=== PATIENT | female | born 1935 | race Caucasian/White ===

== ENCOUNTER 2019-11-19 16:14 | Emergency (ER) | payer MEDICARE, OTHER, SELFPAY ==
[2019-11-19 16:30] VITALS: BP 135/73; PULSE 90; RESP 18; TEMP 36.4; O2SAT 91; BMI 33.0
--- NOTE | 2019-11-19 17:15 | CTR_ITS ---
PROCEDURE INFORMATION: Exam: CT Head Without Contrast Exam date and time: 11/19/2019 5:33 PM Age: 84 years old Clinical indication: Injury or trauma; Fall; Initial encounter; Injury details: Patient scanned x 2 due to motion; Additional info: Fall, eliquis TECHNIQUE: Imaging protocol: Computed tomography of the head without contrast. Radiation optimization: All CT scans at this facility use at least one of these dose optimization techniques: automated exposure control; mA and/or kV adjustment per patient size (includes targeted exams where dose is matched to clinical indication); or iterative reconstruction. COMPARISON: No relevant prior studies available. RADIATION DOSE METRICS: Total DLP (mGy-cm): 1509.43 FINDINGS: Brain: Mild volume loss and white matter disease are identified. There is no acute infarct or edema. No hemorrhage. Ventricles: Normal. No ventriculomegaly. Bones/joints: There is a bilateral comminuted nasal fracture. Sinuses: Visualized sinuses are unremarkable. No fluid levels. Mastoid air cells: Visualized mastoid air cells are well aerated. Soft tissues: There is bilateral periorbital soft tissue swelling. CT/CT head wo con* [id number] IMPRESSION: There is a bilateral comminuted nasal fracture. No intracranial hemorrhage. Radiation Dose CTDIVOL = (mGy): DLP = 1509.43 (mGy-cm)
--- NOTE | 2019-11-19 17:17 | CTR_ITS ---
PROCEDURE INFORMATION: Exam: CT Maxillofacial Without Contrast Exam date and time: 11/19/2019 5:33 PM Age: 84 years old Clinical indication: Injury or trauma; Fall; Initial encounter; Blunt trauma (contusions or hematomas); Cheek bone and head/scalp and forehead and nose and orbit/periorbital and lip/oral cavity; Loss of consciousness not known; Bilateral; Both upper and lower; Additional info: Fall, eliquis TECHNIQUE: Imaging protocol: Computed tomography images of the face without contrast. Radiation optimization: All CT scans at this facility use at least one of these dose optimization techniques: automated exposure control; mA and/or kV adjustment per patient size (includes targeted exams where dose is matched to clinical indication); or iterative reconstruction. COMPARISON: No relevant prior studies available. RADIATION DOSE METRICS: Total DLP (mGy-cm): 773.99 FINDINGS: Orbits: Orbits are normal. Globes are unremarkable. Bones/joints: There is a bilateral comminuted nasal fracture. There is a minimally displaced fracture of the nasal septum. The orbital breaux, zygomatic arch and pterygoid plates are intact. Sinuses: Normal. No air-fluid levels. Soft tissues: There is bilateral periorbital soft tissue swelling. CT/CT facial bones wo con* [id number] IMPRESSION: There is a bilateral comminuted nasal fracture. There is a minimally displaced fracture of the nasal septum. Radiation Dose CTDIVOL = (mGy): DLP = 773.99 (mGy-cm)
--- NOTE | 2019-11-19 17:17 | XR_ITS ---
WS: [id number] Left wrist, 3 views, 11/19/2019 Clinical Data: fall, pain, deformity Comparison: None. Findings: There is an impacted fracture of the distal left radius. There is a simple fracture of the ulnar styl oid. The carpal bones are intact. There is soft tissue swelling about the fracture site. XR/XR wrist LT min 3V* [id number] Impression: 1. Slightly impacted fracture of the distal left radius. 2. Left ulnar styloid fracture.
[2019-11-19] MEDS: HYDROcodone-acetaminophen 5-325 mg Tablet 1 TAB PO (18:19)
[2019-11-19 19:02] VITALS: BP 142/74; PULSE 70; RESP 17; O2SAT 98
--- NOTE | 2019-11-19 20:40 | W.ED.FALL ---
HPI - Fall General: Chief Complaint: Fall Stated Complaint: fall Time Seen by Provider: 11/19/19 16:57 History of Present Illness: HPI Narrative: This patient is an 84-year-old female who presents today after falling yesterday. She thinks it was around 9:30 in the morning when she fell. She said she had climbed up 2 steps into her carport to get in her car and lost her balance. She fell off the 2 steps landing on concrete with her face. She was wearing a pair of sunglasses which she thinks caused her injuries. She also tried to catch herself on her left wrist and has severe pain there. She has significant bruising all over her face and also her hand and wrist. She denies being concerned about any sort of head or face injury and is only here because of her wrist. She is on apixaban. She has not had any vomiting or severe headache. She denies any loss of consciousness with the fall. She has a history of A. fib and is actually currently wearing a event monitor. She denies any palpitations or anything related to her fall. complaint: fall Onset (ago): day(s) (1) Fall from: standing Fall witnessed: no Place fall occurred: home Loss of consciousness: None Prolonged down time: no Symptoms prior to fall: dizziness Associated symptoms-after fall: Denies abdominal pain, chest pain, headache(s) or neck pain Review of Systems General: Reports: 10 or more systems reviewed and unremarkable except in HPI and below Const: Denies: fever(s), chills, fatigue or malaise Eyes: Denies: change in vision ENMT: Denies: odynophagia Card: Denies: chest pain or swelling of feet/ankles Resp: Denies: dyspnea, productive cough or non-productive cough GI: Denies: abdominal pain, nausea or vomiting : Denies: flank pain or difficulty voiding Musc: Reports: joint pain and joint swelling; Denies: neck pain or back pain Skin/Breast: Denies: rash Neuro: Denies: headache(s), numbness in extremities or weakness in extremities Fernando/Lymph: Denies: easy bruising or easy bleeding PFS ED PFSH: Medical History Atrial fibrillation Hypothyroidism PVC (premature ventricular contraction) Surgical History S/P abdominoplasty S/P cholecystectomy S/P hysterectomy Social History Smoking and tobacco status: never smoked Alcohol intake: current Alcohol intake frequency: holidays/special occasions only Physical Exam Const: COMMON NORMALS: no acute distress, patient oriented x3, no limitations and alert GENERAL APPEARANCE: cooperative and comfortable HENMT: FACE & SINUS: other (Ecchymosis around both eyes, the nose, with an abrasion over the bridge of the nose. Swelling of the lips with ecchymosis.) OTHER: Teeth appear stable. There is a small laceration under the left side of the nose. This is well approximated and does not need stitches. Eye: GENERAL EYE: appearance normal, both eyes and all related structures Neck/C-Spine: COMMON NORMALS: supple, no meningeal signs and no JVD Chest: COMMONS NORMALS: normal inspection of the chest Resp: COMMON NORMALS: normal respiratory effort, No use of accessory muscles and clear to auscultation bilaterally AUSCULTATION: clear to auscultation bilaterally Cardio: COMMON NORMALS: no JVD, regular rate, regular rhythm and No murmurs present (Cardio) RATE: regular rate RHYTHM: regular rhythm GI: COMMON NORMALS: Normal to inspection, nondistended, normoactive bowel sounds present, Soft to palpation and non-tender INSPECTION: Yes normal to inspection AUSCULTATION: Yes normoactive bowel sounds PALPATION: Yes Soft to palpation Back/Pelvis: COMMON NORMALS: thoracic and lumbar spine normal to inspection Extremity: GENERAL: Yes normal exam except as noted LEFT UPPER EXTREMITY: Yes wrist (Pain, swelling, deformity which is mild.) Neuro: COMMON NORMALS: patient oriented x3, moves all extremities, no focal motor deficits and no sensory deficits noted SENSORIUM/ORIENTATION: Yes alert MENINGEAL SIGNS: Yes no meningeal signs Psych: COMMON NORMALS: mental status grossly normal, cooperative and normal affect Skin: COMMON NORMALS: no rashes or lesions noted and turgor normal GENERAL SKIN EXAM: no rashes or lesions noted and turgor normal Course ED course: Patient was stable in the ED. She requested some pain medicine was given a dose of hydrocodone. 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 Splint was placed on her left wrist. CT of her head and face only showed nasal bone fractures. The x-ray of her wrist showed a distal radius fracture. She was given follow-up with Dr. Thompson and Dr. Rich. She will continue follow-up with her office coordinator for the event monitor. Vital Signs: Vital signs: Vital Signs Temperature 97.6 F 11/19/19 16:30 Pulse Rate 70 11/19/19 19:02 Respiratory Rate 17 11/19/19 19:02 Blood Pressure 142/74 11/19/19 19:02 Pulse Oximetry 98 11/19/19 19:02 MDM - Fall MDM Narrative: Medical decision making narrative: Fall with significant injuries to the face and head. She seems completely awake and alert however. As she is on blood thinners I think a CT of her facial bones and brain is definitely indicated. She has no neck or back pain. She does have pain in her left wrist and I suspect a fracture there. Currently on an event monitor with a history of A. fib. She said she was not having any symptoms and does not know why they wanted her to do the event monitor. Discharge Plan Discharge Patient Disposition: Home, Self-Care Clinical Impression: Distal radius fracture, left Qualifiers: Encounter type: initial encounter Fracture type: closed Fracture morphology: other fracture Qualified Code(s): S52.592A - Other fractures of lower end of left radius, initial encounter for closed fracture Atrial fibrillation Qualifiers: Atrial fibrillation type: unspecified chronic Qualified Code(s): I48.20 - Chronic atrial fibrillation, unspecified Closed fracture nasal bone Qualifiers: Encounter type: initial encounter Qualified Code(s): S02.2XXA - Fracture of nasal bones, initial encounter for closed fracture Condition: Stable Prescriptions: New hydrocodone-acetaminophen 5-325 mg tablet 1 tab PO Q6H PRN (Reason: pain) Qty: 10 RF: 0 No Action potassium gluconate 595 mg (99 mg) tablet 595 mg PO DAILY PRN (Reason: unknown) RF: 0 citalopram 10 mg tablet 10 mg PO DAILY RF: 0 hydrochlorothiazide 12.5 mg capsule 12.5 mg PO DAILY PRN (Reason: Edema) RF: 0 metoprolol tartrate 100 mg tablet 100 mg PO BID Qty: 180 RF: 3 Eliquis 5 mg tablet 5 mg PO BID Qty: 30 RF: 11 vitamin B complex Tablet 1 tab PO DAILY RF: 0 CoQ-10 1 tab PO DAILY RF: 0 Daily Super Greens See Rx Instructions .ROUTE .COMPLEX RF: 0 Referrals: Kurt Renae MD [Physician] - 4-7 days Marlee Hummel MD [Physician] - 1-3 days Johan Carrillo Jr, MD [Primary Care Provider] - Discharge Diet: Usual diet Discharge Activity: Resume usual activity Patient Instructions: Nasal Fracture (ED), Wrist Fracture in Adults (ED) Activity Restrictions/Additional Instructions: Keep your arm elevated. Apply ice which can be applied to the cast. Follow-up with Dr. Hummel regarding the arm fracture. Follow-up with Dr. Rich regarding the nasal bone fracture. Rest. Continue your regular medications. Continue wearing the monitor. Use the pain medication as needed but be careful as it may cause you to be sleepy or off balance. It may also cause constipation. Discharge Date/Time: 11/19/19 19:06 Coding Level of Care Code ED Credit Risk Associate for Jose Guadalupe Bingham
--- NOTE | 2019-11-20 10:01 | DCPLANNER ---
resolution manager had message to schedule a follow up appointment for patient with ortho. resolution manager called the ortho clinic, spoke with Geena, gave clinic patients information. resolution manager was told that patients information would be printed and reviewed. Clinic will call patient with appointment information.
--- NOTE | 2019-11-21 13:45 | DCPLANNER ---
Patient has a follow up appointment scheduled for Tuesday, November 21, 2019 at 3:[address] Hummel. Clinic will call patient with appointment information.
--- NOTE | 2019-11-22 15:03 | DCPLANNER ---
Patient did attend appointment scheduled for 11.21.19 with ortho.
== END 2019-11-19 19:06 | disposition home or self-care (01) ==
PROVIDERS: Emergency Provider Emergency Medicine; PCP Family Medicine
DX: S02.2XXA Fracture of nasal bones, initial encounter for closed fracture (principal); S52.592A Other fractures of lower end of left radius, initial encounter for closed fracture; I48.20 Chronic atrial fibrillation, unspecified; Z79.01 Long term (current) use of anticoagulants; W18.39XA Other fall on same level, initial encounter
CPT/HCPCS: 12345; 29125; 70450; 70486; 73110; 99281; 99283

== ENCOUNTER 2019-11-21 16:08 | Outpatient (CLI) | payer MEDICARE, OTHER, SELFPAY | END 2019-11-21 16:09 | disposition home or self-care (01) | LOC: SPT 16:10 | PROVIDERS: PCP Family Medicine; Visit Provider Specialist | DX: Z47.89 Encounter for other orthopedic aftercare (principal); S52.592D Other fractures of lower end of left radius, subsequent encounter for closed fracture with routine healing; X58.XXXD Exposure to other specified factors, subsequent encounter | CPT/HCPCS: 97760; L3982 ==

== ENCOUNTER → 2019-12-05 13:11 | Outpatient (BNVA) | payer MEDICARE, OTHER, SELFPAY | PROVIDERS: PCP Family Medicine; Visit Provider Specialist | DX: S52.592A Other fractures of lower end of left radius, initial encounter for closed fracture (principal); M19.032 Primary osteoarthritis, left wrist; X58.XXXA Exposure to other specified factors, initial encounter; I48.20 Chronic atrial fibrillation, unspecified; I49.3 Ventricular premature depolarization; Z79.01 Long term (current) use of anticoagulants | CPT/HCPCS: 73110; 80048; 80162; 85025 ==

== ENCOUNTER → 2019-12-26 10:47 | Outpatient (BNVA) | payer MEDICARE, OTHER, SELFPAY | PROVIDERS: PCP Family Medicine; Visit Provider Specialist | DX: S52.592D Other fractures of lower end of left radius, subsequent encounter for closed fracture with routine healing; W19.XXXD Unspecified fall, subsequent encounter | CPT/HCPCS: 73110 ==

== ENCOUNTER 2021-01-29 11:12 | Outpatient (CLI) | payer MEDICARE, OTHER, SELFPAY ==
--- NOTE | 2021-01-29 11:19 | MM_ITS ---
WS: [id number] BILATERAL DIGITAL SCREENING MAMMOGRAPHY WITH CAD CLINICAL INFORMATION: SCREENING HISTORY: Screening mammogram. No current complaints. COMPARISON: TECHNIQUE: Bilateral CC and MLO views. FINDINGS: Scattered fibroglandular densities bilaterally.Asymmetric ovoid focal asymmetry outer quadrant LEFT b reast posterior depth along the posterior nipple line near the 12:00 position measuring 2.3 cm. This is new from 2016. Recommend LEFT diagnostic mammography and ultrasound. RIGHT breast is unremarkable and unchanged. Vascular calcification. MM/[place] [id number] IMPRESSION: BI-RADS: 0-Incomplete: Need additional imaging evaluation FOLLOW UP: Need Additional Imaging Recommend LEFT breast diagnostic mammography and ultrasound.
== END 2021-01-29 11:13 | disposition home or self-care (01) ==
LOC: RADSHAW 11:18
PROVIDERS: PCP Family Medicine; Visit Provider Family Medicine
DX: Z12.31 Encounter for screening mammogram for malignant neoplasm of breast (principal)
CPT/HCPCS: 77067

== ENCOUNTER 2021-02-12 09:04 | Outpatient (CLI) | payer MEDICARE, OTHER, SELFPAY ==
--- NOTE | 2021-02-12 09:20 | US_ITS ---
WS: [id number] LEFT DIGITAL MAMMOGRAPHY WITH CAD CLINICAL INFORMATION: ABNORMAL MAMMOGRAM COMPARISON: January 29, 2021 TECHNIQUE: 3 views of the left breast were obtained. FINDINGS: Scattered fibroglandular densities left breast. Stable ovoid focal asymmetry outer quadrant LEFT deidre st posterior depth along the posterior nipple line near the 12:00 position measuring 2.3 cm. Ultraso und is pending. ULTRASOUND BREAST LEFT TECHNIQUE: Ultrasound left breast focused area of concern. CLINICAL INFORMATION: ABNORMAL MAMMOGRAM FINDINGS: Ultrasound left breast at the 1:00 position 3 cm from the nipple demonstrates simple cyst measuring 2 .4 x 2.1 x 0.8 cm. Additional cyst at the 2:00 position 2 cm from the nipple measuring 0.4 x 0.5 x 0. 3 CM. No suspicious findings. US/US breast LT limited* [id number] IMPRESSION: BI-RADS: 2-Benign FOLLOW UP: 1 Year Follow-up Recommend return to annual screening mammography.
== END 2021-02-12 09:05 | disposition home or self-care (01) ==
LOC: RADSHAW 09:10
PROVIDERS: PCP Family Medicine; Visit Provider Family Medicine
DX: R92.8 Other abnormal and inconclusive findings on diagnostic imaging of breast (principal)
CPT/HCPCS: 76642; 77065

== ENCOUNTER 2021-07-13 13:20 | Outpatient (CLI) | payer MEDICARE, OTHER, SELFPAY | END 2021-07-13 13:21 | disposition home or self-care (01) | LOC: WOUND 13:21 | PROVIDERS: PCP Family Medicine; Visit Provider Thoracic Surgery (Cardiothoracic Vascular Surgery) | DX: I83.891 Varicose veins of right lower extremity with other complications (principal) | CPT/HCPCS: 99213 ==

== ENCOUNTER 2021-08-03 13:06 | Outpatient (CLI) | payer MEDICARE, OTHER, SELFPAY ==
--- NOTE | 2021-08-03 13:16 | USCV_ITS ---
Clara Zamudio Age: 86 Gender: F : 1935 Exam Date: 08/03/2021 13:55 Ordering Phys: Armando Haider MD (Andy) ([email or web address]) Technologist: KELSI Exam Location: [facility] [place] Indication: HISTORY: Lower extremity pain. Pt c/o zuniga from hot towels on lower legs. PROCEDURES: Bilateral duplex Venous Insufficiency study of the Deep and Superficial systems was carried out according to normal protocol with the patient in supine positon for deep system and dependent position for the superficial system. FINDINGS: TDS due to pt pain. Pt had difficulty laying down. Reflux visualized in the Rt GSV below knee, Rt SSV Prox, Rt SSV Mid, Lt GSV Prox-Below knee and Lt SSV Mid. All veins imaged appear free of thrombus at this time. CONCLUSIONS No evidence of DVT in the above-mentioned identifiable veins. 2. On the right side, significant venous reflux of greater than 1000 ms was noted at the popliteal vein. Significant venous reflux of greater than 500 ms was noted at the below-knee greater saphenous vein, proximal and mid small saphenous vein segments. For the small saphenous vein segments were found to be less than 1 cm deep from the surface. The below-knee greater saphenous vein was 1.18 cm deep from the surface. The below-knee greater saphenous vein segment was measuring 0.25 cm in diameter. 3. On the left side no deep vein reflexes were noted. Significant venous reflux of greater than 500 ms were noted throughout the greater saphenous vein segments. But the below-knee segment of the greater saphenous vein was very superficial. Other greater saphenous vein segments were found to be greater than 1 cm deep from the surface. Significant venous reflux of greater than 500 ms also was noted in the mid small saphenous vein segment. However the venous segment was a less than 1 cm deep from the surface. The greater saphenous vein segments were measuring anywhere from 0.28 to 0.[address] Alex Kaur MD [facility] (Electronically Signed) Final Date: 05 August 2021 10:44 S
== END 2021-08-03 13:07 | disposition home or self-care (01) ==
LOC: RAD 13:12
PROVIDERS: PCP Family Medicine; Visit Provider Thoracic Surgery (Cardiothoracic Vascular Surgery)
DX: I87.2 Venous insufficiency (chronic) (peripheral) (principal); M79.604 Pain in right leg; M79.605 Pain in left leg
CPT/HCPCS: 93970

== ENCOUNTER → 2021-08-27 14:15 | Outpatient (BNVA) | payer MEDICARE, OTHER, SELFPAY | PROVIDERS: PCP Family Medicine; Visit Provider Internal Medicine | DX: I48.20 Chronic atrial fibrillation, unspecified (principal); I10 Essential (primary) hypertension; I49.3 Ventricular premature depolarization; E03.9 Hypothyroidism, unspecified; Z79.01 Long term (current) use of anticoagulants | CPT/HCPCS: 99214 ==

== ENCOUNTER → 2022-02-25 14:34 | Outpatient (BNVA) | payer MEDICARE, OTHER, SELFPAY | PROVIDERS: PCP Family Medicine; Visit Provider Internal Medicine | DX: I48.20 Chronic atrial fibrillation, unspecified (principal); Z79.01 Long term (current) use of anticoagulants; I10 Essential (primary) hypertension; I49.3 Ventricular premature depolarization; E03.9 Hypothyroidism, unspecified; R07.9 Chest pain, unspecified | CPT/HCPCS: 36415; 80048; 80162; 83880; 99214 ==

== ENCOUNTER 2022-05-12 07:20 | Outpatient (CLI) | payer MEDICARE, OTHER, SELFPAY ==
--- NOTE | 2022-05-12 08:00 | USCV_ITS ---
Clara Zamudio Age: 86 Gender: F : 1935 Exam Date: 05/12/2022 07:46 Ordering Phys: Shreyas Lozada M.D ([email or web address]) Technologist: Dru Freeman Exam Location: [facility] [place] Indication: sob, chest pain BP: 126 / 64 HR: 86 Rhythm: Atrial fibrillation Technical Quality: Adequate MEASUREMENTS (Male / Female) Normal Values 2D ECHO LV Diastolic Diameter PLAX 4.4 cm 4.2 - 5.9 / 3.9 - 5.3 cm LV Systolic Diameter PLAX 3.2 cm IVS Diastolic Thickness 0.8 cm 0.6 - 1.0 / 0.6 - 0.9 cm IVS Systolic Thickness 1.1 cm LVPW Diastolic Thickness 1.2 cm 0.6 - 1.0 / 0.6 - 0.9 cm LVPW Systolic Thickness 1.9 cm LVOT Diameter 2.0 cm LV Ejection Fraction 2D Teich 51.9 % LV Ejection Fraction MOD 2C 70.7 % LV Ejection Fraction 2C AL 70.1 % LA Diameter 4.7 cm LA Width 4.0 cm LA Height 6.7 cm RA Width 5.0 cm RA Height 6.7 cm Aorta at Sinotubular Diameter 2.3 cm IVC Diameter 2.5 cm M-MODE Aortic Annulus Diameter 3.4 cm LA Ao Ratio MM 1.4 MV E Point Septal Separation 0.3 cm DOPPLER AV Peak Velocity 116.0 cm/s LVOT Peak Velocity 99.0 cm/s AV Area Cont Eq vti 3.4 cm squared AV Area Cont Eq pk 2.7 cm squared MV Peak Velocity 139.0 cm/s MV Area PHT 9.6 cm squared MV E' Velocity 56.0 cm/s Mitral E to MV E' Ratio 5.6 Mitral E to LV E' Lateral Ratio 6.7 Mitral E to LV E' Septal Ratio 4.9 TR Peak Velocity 369.8 cm/s TR Peak Gradient 54.7 mmHg TR Mean Velocity 293.4 cm/s TR Mean Gradient 37.4 mmHg TR Velocity Time Integral 107.0 cm Right Atrial Pressure 8.0 mmHg Pulmonary Artery Systolic Pressu 62.7 mmHg PV Peak Velocity 123.0 cm/s RV Acceleration Time 0.1 s RV Ejection Time 0.2 s RV AcT/ET 0.3 FINDINGS Left Ventricle Left ventricle is normal in size. LV systolic function is normal with EF of 55 to 60%. No regional wall motion abnormalities are seen. Right Ventricle Normal in size and function Right Atrium Dilated Left Atrium Dilated Mitral Valve Structurally normal mitral valve. Mild mitral regurgitation. Aortic Valve Structurally normal aortic valve. Mild to moderate aortic regurgitation. No significant stenosis. Tricuspid Valve Mild tricuspid regurgitation. RVSP is 40-45 mmHg. This is consistent with moderate pulmonary hypertension Pulmonic Valve Not well-visualized. Mild pulmonic regurgitation. Pericardium Normal Aorta Normal in size IVC Dilated CONCLUSIONS LV systolic function is normal with EF of 55 to 60%. No regional wall motion abnormalities are seen. Biatrial dilation Mild mitral regurgitation Mild to moderate aortic regurgitation. Mild tricuspid regurgitation Moderate pulmonary hypertension Mild pulmonic regurgitation. Compared to prior echocardiogram from 2019, no significant changes are seen Shreyas Lozada MD (Electronically Signed) Final Date: 19 May 2022 17:28 S
== END 2022-05-12 07:21 | disposition home or self-care (01) ==
PROVIDERS: PCP Family Medicine; Visit Provider Internal Medicine
DX: R06.02 Shortness of breath (principal); R07.9 Chest pain, unspecified; I08.3 Combined rheumatic disorders of mitral, aortic and tricuspid valves
CPT/HCPCS: 93306

== ENCOUNTER → 2022-05-28 11:08 | Outpatient (BNVA) | payer MEDICARE, OTHER, SELFPAY | PROVIDERS: PCP Family Medicine; Visit Provider Internal Medicine | DX: I48.20 Chronic atrial fibrillation, unspecified (principal); I10 Essential (primary) hypertension; I49.3 Ventricular premature depolarization; E03.9 Hypothyroidism, unspecified; Z79.01 Long term (current) use of anticoagulants | CPT/HCPCS: 99214 ==

== ENCOUNTER 2022-08-13 13:03 | Outpatient (CLI) | payer MEDICARE, OTHER, SELFPAY ==
--- NOTE | 2022-08-13 13:18 | MM_ITS ---
WS: [id number] BILATERAL SCREENING DIGITAL TOMOSYNTHESIS MAMMOGRAM WITH CAD HISTORY: SCREENING COMPARISON: 02/12/2021, 01/29/2021 and 04/05/2016 Bilateral CC and MLO views with tomosynthesis and synthetic mammography submitted. Computer aided det ection analyzed. Breast composition: There are scattered areas of fibroglandular density. No suspicious masses, microc alcifications or architectural distortion. No change in the partially obscured mass near 1:00 of the LEFT breast. Prior ultrasound demonstrated a cyst. Benign arterial calcifications. MM/[id number] IMPRESSION: BI-RADS: 2-Benign FOLLOW UP: 1 Year Follow-up
--- NOTE | 2022-08-13 13:35 | XR_ITS ---
WS: [id number] DEXA (DUAL ENERGY X-RAY ABSORPTIOMETRY) Bone mineral density was performed using a [employer] machine. HISTORY: POSTMENOPAUSAL COMPARISON: 07/06/2012 Lumbar spine BMD (L1-L4): 0.975 g/cm2 T score: -1.7 Z score: -0.5 Total hip BMD: Left: 0.685 g/cm2. T score: -2.6 Z score: -0.8 Right: 0.651 g/cm2. T score: -2.8 Z score: -1.0 10 year probability of a major osteoporotic fracture is 31%. Compared to the prior study from 01/03/2013. Lumbar spine bone mineral density has decreased by 7.4%. Bilateral hips bone mineral density has decreased by 11.3%. XR/XR DEXA axial skeleton* [id number] IMPRESSION: OSTEOPOROSIS based upon the WHO classification for females. Significant decrease in bone mineral density within both the lumbar spine and h ips since the prior study.
== END 2022-08-13 13:04 | disposition home or self-care (01) ==
PROVIDERS: PCP Family Medicine; Visit Provider Family Medicine
DX: Z12.31 Encounter for screening mammogram for malignant neoplasm of breast (principal); Z78.0 Asymptomatic menopausal state; M81.0 Age-related osteoporosis without current pathological fracture
CPT/HCPCS: 77063; 77067; 77080

== ENCOUNTER 2022-09-08 10:43 | Emergency (ER) | payer MEDICARE, OTHER, SELFPAY ==
[2022-09-08] VITALS (39 sets, daily range): BP systolic 131–158; BP diastolic 55–88; PULSE 71–111; RESP 14–29; TEMP 36.9; O2SAT 85–96; BMI 34.7
--- NOTE | 2022-09-08 11:32 | CTR_ITS ---
PROCEDURE INFORMATION: Exam: CT Maxillofacial Without Contrast Exam date and time: 09/08/2022 1:00 PM Age: 87 years old Clinical indication: Injury or trauma; Fall; Blunt trauma (contusions or hematomas); Cheek bone and eyelid and orbit/periorbital; Upper left and lower left; Additional info: Fall left sided facial trauma TECHNIQUE: Imaging protocol: Computed tomography of the face without contrast. Radiation optimization: All CT scans at this facility use at least one of these dose optimization techniques: automated exposure control; mA and/or kV adjustment per patient size (includes targeted exams where dose is matched to clinical indication); or iterative reconstruction. REPORTING DATA: Count of CT and Cardiac NM exams in prior 12 months: This patient has received 0 known CTs and 0 known cardiac nuclear medicine studies in the 12 months prior to the current study. COMPARISON: CT facial bones wo con* [id number] 11/19/2019 5:38 PM RADIATION DOSE METRICS: Total DLP (mGy-cm): 629 FINDINGS: Orbital cavities: See Soft tissues finding. Bones/joints: Mild old fracture deformity of the nasal bone when correlated with 11/19/2019 exam. Mild nasal septal deviation to the right , chronic with prior exam. No acute fracture is seen about the facial bones, sinuses, orbits. Paranasal sinuses: Mucosal sinus disease noted within the right maxillary sinus and ethmoid sinuses, with axial images suggesting partial air-fluid level posteriorly in the right maxillary sinus. There is involvement of the maxillary sinus ostium on the right. Maxillary sinus ostium on the left is clear. Remainder of the sinuses appear clear. Findings suggest mucosal sinus disease and component of sinusitis. Soft tissues: Mild soft tissue swelling on the left. Nasal soft tissues appear unremarkable. Globes of the orbits appear intact. Dental: Streak artifact from dental hardware noted. CT/CT facial bones wo con* [id number] IMPRESSION: 1. No acute fracture is seen, with mild old fracture deformity of the nasal bone when correlated with 2019 exam. 2. Mild soft tissue swelling on the left. 3. Mucosal sinus disease involving the right maxillary and ethmoid sinuses, as well as involving the right maxillary sinus ostium.
--- NOTE | 2022-09-08 11:32 | CTR_ITS ---
PROCEDURE INFORMATION: Exam: CT Abdomen And Pelvis With Contrast Exam date and time: 09/08/2022 1:10 PM Age: 87 years old Clinical indication: Injury or trauma; Fall; Blunt; Generalized; Additional info: Pelvic pain, abd pain, hematuria TECHNIQUE: Imaging protocol: Computed tomography of the abdomen and pelvis with contrast. Radiation optimization: All CT scans at this facility use at least one of these dose optimization techniques: automated exposure control; mA and/or kV adjustment per patient size (includes targeted exams where dose is matched to clinical indication); or iterative reconstruction. Contrast material: OMNI 350; Contrast volume: 100 ml; Contrast route: INTRAVENOUS (IV); REPORTING DATA: Count of CT and Cardiac NM exams in prior 12 months: This patient has received 0 known CTs and 0 known cardiac nuclear medicine studies in the 12 months prior to the current study. COMPARISON: CR XR chest 2V* [id number] 02/18/2019 12:52 PM RADIATION DOSE METRICS: Total DLP (mGy-cm): 957 FINDINGS: Lungs: There is mild scattered subsegmental atelectasis at the lung bases. Heart: Heart is enlarged. Liver: Liver has a mildly cirrhotic contour. Two small benign-appearing liver cyst left lobe. Irregular shaped lobulated cystic structure insinuating along the anterior inferior margin of the right lobe of the liver measuring 10 x 4 cm more nonspecific. Gallbladder and bile ducts: Gallbladder has been removed. Bile ducts not dilated. Pancreas: Unremarkable. Main pancreatic duct is not significantly dilated. Spleen: Normal. No splenomegaly. Adrenal glands: 1.5 cm right adrenal lesion and, indeterminate.. Kidneys and ureters: Mild bilateral pelviectasis likely long-standing secondary to patulous extra renal collecting systems. 4 cm benign appearing cortical cyst right kidney. Stomach and bowel: See Intraperitoneal space finding. Appendix: No evidence of appendicitis. Intraperitoneal space: Mild amount of ascites within the upper abdomen is adjacent to the liver and spleen and extending inferiorly into the right paracolic gutter. 5 x 3.5 cm circumscribed cystic structure right upper pelvis adjacent to some ascitic fluid and bowel loops possibly ovarian in origin. Remained doing wrong. Vasculature: Scattered atherosclerotic changes of the abdominal aorta and iliac vessels. No aortic aneurysm. Lymph nodes: Unremarkable. No enlarged lymph nodes. Urinary bladder: 2 cm circumscribed oval shaped intraluminal bladder wall mass arising the right posterior bladder wall near the right trigone concerning for bladder wall tumor. Urinary bladder is moderately distended. 8 x 6 cm rounded cystic structure abutting the left posterior bladder wall may represent a large bladder diverticulum or alternatively a ovarian cyst. Reproductive: The uterus has been removed. Bones/joints: Mild degenerative spondylolisthesis L4-L5. No acute bony abnormalities. Soft tissues: Moderate degree of anasarca within the soft tissues likely due to volume overload or hypoproteinemia. CT/CT abdomen pelvis w con* [id number] IMPRESSION: 1. No compelling evidence of abdominal or pelvic injury. 2. Cirrhosis with mild amount of ascites within the abdomen. A 3. 10 x 4 cm exophytic cystic structure right lobe liver, indeterminate. Continued follow-up recommended. 4. 2 cm bladder wall mass likely neoplastic in nature. 5. There are 2 moderate-sized cystic structures within the pelvis possibly representing ovarian cysts and bladder diverticulum. Recommend follow-up nonemergent pelvic ultrasound for further evaluation. 6. 1.5 cm right adrenal lesion, indeterminate. Recommend repeat study in 6 months for continued surveillance. 7. Additional nonemergent findings as above. COMMENTS: Consistent with the [employer]'s Incidental Findings Committee white paper (J Am Tianna Radiol 2018): Any incidental renal lesion less than 1 cm or classified as too small to characterize, or any incidental cystic renal lesion characterized as simple-appearing, is likely benign. No follow-up imaging is recommended for these lesions per consensus recommendations based on imaging criteria.
--- NOTE | 2022-09-08 11:32 | CTR_ITS ---
PROCEDURE INFORMATION: Exam: CT Head Without Contrast Exam date and time: 09/08/2022 1:04 PM Age: 87 years old Clinical indication: Injury or trauma; Fall; Blunt trauma (contusions or hematomas); Additional info: Fall, head trauma, on eliquis TECHNIQUE: Imaging protocol: Computed tomography of the head without contrast. Radiation optimization: All CT scans at this facility use at least one of these dose optimization techniques: automated exposure control; mA and/or kV adjustment per patient size (includes targeted exams where dose is matched to clinical indication); or iterative reconstruction. REPORTING DATA: Count of CT and Cardiac NM exams in prior 12 months: This patient has received 0 known CTs and 0 known cardiac nuclear medicine studies in the 12 months prior to the current study. COMPARISON: CT head wo con* [id number] 11/19/2019 5:34 PM RADIATION DOSE METRICS: Total DLP (mGy-cm): 1190 FINDINGS: Brain: Atrophic or involutional change for age indicates volume loss. Chronic small-vessel disease change noted in the periventricular region and basal ganglia. Findings are chronic with prior exam 11/19/2019. No intracranial hemorrhage or hematoma is seen. No mass effect or shift of midline structures. No findings to indicate territorial or large vessel ischemic infarct. Cerebral ventricles: No significant ventriculomegaly. Paranasal sinuses: Mucosal sinus disease involving the right maxillary and ethmoid sinuses. Mastoid air cells: Visualized mastoid air cells are well aerated. Bones/joints: Bone windows show no acute fracture with mild old nasal bone fracture when correlated with prior exam. Soft tissues: Mild soft tissue swelling inferior frontal soft tissues on the left. CT/CT head wo con* [id number] IMPRESSION: 1. Atrophic or involutional change for age, along with chronic small-vessel disease change, as noted with prior exam. 2. No acute findings, without intracranial hemorrhage or hematoma.
--- NOTE | 2022-09-08 11:36 | W.ED.FALL ---
HPI - Fall General: Chief Complaint: Fall Stated Complaint: Fall, bleeding out of vagina, Lower half pain Time Seen by Provider: 09/08/22 11:13 History of Present Illness: Patient presents to the ER with complaints of fall few days ago. Patient has severe abdominal pain and blood in her urine. Patient appears bruise on the left side of her face with dried blood in her mouth but she does not complain of these areas. Patient's only complaint is that she is very cold she is shaking and she has pain in her bladder region. MD complaint: fall Onset (ago): day(s) (Few days ago) Fall from: standing Place fall occurred: home Loss of consciousness: None Location of injury: face Associated symptoms-after fall: Denies abdominal pain, chest pain or neck pain Review of Systems General: Reports: 10 or more systems reviewed and unremarkable except in HPI and below Const: Reports: chills; Denies: fever(s), body aches or change in appetite Eyes: Denies: change in vision or blurry vision ENMT: Denies: throat pain or odynophagia Card: Denies: chest pain, palpitations or irregular heart rhythm Resp: Denies: dyspnea, productive cough or non-productive cough GI: Denies: abdominal pain, nausea or vomiting : Denies: flank pain, difficulty voiding or dysuria Musc: Denies: neck pain, back pain or extremity pain Skin/Breast: Denies: rash or pruritus PFS ED PFSH: Medical History (Updated 09/08/22 @ 15:00 by Sean Schumacher DO) Atrial fibrillation CAD (coronary artery disease) Hypothyroidism Kidney lesion PVC (premature ventricular contraction) Surgical History S/P abdominoplasty S/P cholecystectomy S/P hysterectomy Social History Smoking and tobacco status: never smoked Alcohol intake: former Substance/Drug Use: never Physical Exam Const: COMMON NORMALS: no acute distress, average body habitus, patient oriented x3, no limitations, healthy appearing, alert and well nourished HENMT: OTHER: Patient has ecchymosis along the left left periorbital cheek nasal region, patient has dried blood in her oral cavity. Eye: COMMON NORMALS: Equal, round and reactive pupils present, EOMs intact bilaterally, conjunctivae normal and no scleral icterus CONJUNCTIVA: Yes conjunctivae normal PUPIL: Yes Equal, round and reactive pupils present Neck/C-Spine: COMMON NORMALS: full ROM, no lymphadenopathy, supple, no meningeal signs, no JVD and Thyroid normal THYROID: Thyroid normal Lymph: LYMPHATIC: no lymphadenopathy noted Chest: COMMONS NORMALS: normal inspection of the chest and normal palpation of entire chest wall Resp: COMMON NORMALS: normal respiratory effort, No retractions, No use of accessory muscles and clear to auscultation bilaterally AUSCULTATION: clear to auscultation bilaterally Cardio: COMMON NORMALS: no JVD, regular rate, regular rhythm, S1 normal heart sound present, S2 normal heart sound present, No gallops present (Cardio), No clicks present (Cardio) and No murmurs present (Cardio) RATE: regular rate RHYTHM: regular rhythm HEART SOUNDS: S1 normal heart sound present and S2 normal heart sound present GI: COMMON NORMALS: Normal to inspection, nondistended, normoactive bowel sounds present, non-tender, No hepatosplenomegaly present and no masses PALPATION: Yes Tenderness to palpation present (GI) Details: other (Suprapubic region) and Yes No hepatosplenomegaly present : COMMON NORMALS: Yes no CVA tenderness BLADDER/KIDNEY EXAM: Yes no CVA tenderness Back/Pelvis: COMMON NORMALS: no CVA tenderness Neuro: COMMON NORMALS: patient oriented x3 SENSORIUM/ORIENTATION: Yes alert MENINGEAL SIGNS: Yes no meningeal signs Course Vital Signs: Vital signs: Vital Signs Temperature 98.4 F 09/08/22 11:03 Pulse Rate 90 09/08/22 14:30 Respiratory Rate 19 H 09/08/22 14:30 Blood Pressure 158/55 09/08/22 14:30 Pulse Oximetry 94 09/08/22 14:30 Oxygen Delivery Me thod Nasal Cannula 09/08/22 14:25 Oxygen Flow Rate 5 09/08/22 14:25 MDM - Fall Medical Decision Making Patient presents to the ER with complaints of a fall from a few days ago and suprapubic abdominal pain. Lab work was obtained as well as imaging lab work was essentially benign except for urinary tract infection. Imaging showed multiple abnormalities in the bladder ovarian region. Patient will be treated with pain medicine and antibiotics and referred back to her primary care for follow-up which may include referrals to [facility] and/or urology. Differential Diagnosis Likely concussion without loss of consciousness; Unlikely syncope, dislocation of shoulder region, fracture of wrist, compression fracture or concussion with loss of consciousness Medical Records I reviewed the patient's medical records. Lab Data I reviewed the patient's lab results. 09/08/22 11:30 09/08/22 11:30 Radiology Impressions Abdomen/Pelvis CT 09/08/22 11:32 IMPRESSION: 1. No compelling evidence of abdominal or pelvic injury. 2. Cirrhosis with mild amount of ascites within the abdomen. A 3. 10 x 4 cm exophytic cystic structure right lobe liver, indeterminate. Continued follow-up recommended. 4. 2 cm bladder wall mass likely neoplastic in nature. 5. There are 2 moderate-sized cystic structures within the pelvis possibly representing ovarian cysts and bladder diverticulum. Recommend follow-up nonemergent pelvic ultrasound for further evaluation. 6. 1.5 cm right adrenal lesion, indeterminate. Recommend repeat study in 6 months for continued surveillance. 7. Additional nonemergent findings as above. COMMENTS: Consistent with the [employer]'s Incidental Findings Committee white paper (J Am Tianna Radiol 2018): Any incidental renal lesion less than 1 cm or classified as too small to characterize, or any incidental cystic renal lesion characterized as simple-appearing, is likely benign. No follow-up imaging is recommended for these lesions per consensus recommendations based on imaging criteria. Face CT 09/08/22 11:32 IMPRESSION: 1. No acute fracture is seen, with mild old fracture deformity of the nasal bone when correlated with 2020 exam. 2. Mild soft tissue swelling on the left. 3. Mucosal sinus disease involving the right maxillary and ethmoid sinuses, as well as involving the right maxillary sinus ostium. Head CT 09/08/22 11:32 IMPRESSION: 1. Atrophic or involutional change for age, along with chronic small-vessel disease change, as noted with prior exam. 2. No acute findings, without intracranial hemorrhage or hematoma. Laboratory Results WBC 11.5 10^3/uL (4.0-10.0) H 09/08/22 11:30 RBC 4.42 10^6/uL (4.1-5.3) 09/08/22 11:30 Hgb 13.8 g/dL (11.5-15.3) 09/08/22 11:30 Hct 43.5 % (37.0-47.0) 09/08/22 11:30 MCV 98.4 fl (81-99) 09/08/22 11:30 MCH 31.2 pg (28.0-34.0) 09/08/22 11:30 MCHC 31.7 g/dL (30.0-36.0) 09/08/22 11:30 RDW 13.9 % (12.1-15.1) 09/08/22 11:30 Plt Count 223 10^3/cmm (130-400) 09/08/22 11:30 MPV 10.2 fL (7.4-10.4) 09/08/22 11:30 Neut % (Auto) 90.3 % 09/08/22 11:30 Lymph % (Auto) 6.0 % 09/08/22 11:30 [place] % (Auto) 2.3 % 09/08/22 11:30 Eos % (Auto) 0.5 % 09/08/22 11:30 Baso % (Auto) 0.4 % 09/08/22 11:30 Neut # (Auto) 10.34 10^3/uL (1.8-7.7) H 09/08/22 11:30 Lymph # (Auto) 0.7 10^3/uL (0.8-4.8) L 09/08/22 11:30 [place] # (Auto) 0.3 10^3/uL (0.2-0.9) 09/08/22 11:30 Eos # (Auto) 0.1 10^3/uL (0.0-0.8) 09/08/22 11:30 Baso # (Auto) 0.1 10^3/uL (0.0-0.1) 09/08/22 11:30 Nucleated RBC % (auto) 0 % 09/08/22 11:30 Nucleated RBCs # 0.0 /100WBC 09/08/22 11:30 PT 19.20 SECONDS (12.1-14.9) H 09/08/22 11:30 INR 1.56 (0.8-1.2) H 09/08/22 11:30 Sodium 137 mmol/L (136-145) 09/08/22 11:30 Potassium 4.2 mmol/L (3.5-5.1) 09/08/22 11:30 Chloride 98 mmol/L (98-107) 09/08/22 11:30 Carbon Dioxide 21 mmol/L (22-29) L 09/08/22 11:30 Anion Gap 22.2 (5-19) H 09/08/22 11:30 BUN 23 mg/dL (8-23) 09/08/22 11:30 Creatinine 0.5 mg/dL (0.5-0.9) 09/08/22 11:30 GFR Calculation Not Reportable 09/08/22 11:30 Glucose 142 mg/dL (65-115) H 09/08/22 11:30 Calculated Osmolality 290 mOsm/kg (285-295) 09/08/22 11:30 Calcium 9.3 mg/dL (8.5-10.5) 09/08/22 11:30 Total Bilirubin 2.1 mg/dL (0.15-1.2) H 09/08/22 11:30 AST 26 U/L (0-32) 09/08/22 11:30 ALT 11 U/L (0-33) 09/08/22 11:30 Alkaline Phosphatase 82 U/L (35-105) 09/08/22 11:30 Total Protein 7.0 g/dL (6.6-8.7) 09/08/22 11:30 Albumin 4.3 g/dL (3.5-5.2) 09/08/22 11:30 Globulin 2.7 g/dL (1.3-4.6) 09/08/22 11:30 Urine Color Dark yellow (Yellow) 09/08/22 14:00 Urine Appearance Cloudy (CLEAR) A 09/08/22 14:00 Urine pH 5 (5-7) 09/08/22 14:00 Ur Specific [place] 1.010 (1.005-1.030) 09/08/22 14:00 Urine Protein 3+ (Negative) H 09/08/22 14:00 Urine Glucose (UA) Norm (Normal) 09/08/22 14:00 Urine Ketones Negative (Negative) 09/08/22 14:00 Urine Blood 3+ (Negative) H 09/08/22 14:00 Urine Nitrate Positive (Negative) H 09/08/22 14:00 Urine Bilirubin 1+ (Negative) H 09/08/22 14:00 Urine Urobilinogen 4 mg/dL (Negative) H 09/08/22 14:00 Ur Leukocyte Esterase 2+ (Negative) H 09/08/22 14:00 Urine RBC Too numerous to cnt /hpf (0-2) H 09/08/22 14:00 Urine WBC Too numerous to cnt /hpf (0-5) H 09/08/22 14:00 Ur Squamous Epith Cells Rare /hpf (0-5) 09/08/22 14:00 Amorphous Sediment Not Reportable 09/08/22 14:00 Urine Bacteria 2+ /hpf (NONE) H 09/08/22 14:00 Digoxin 0.6 ng/mL (0.6-1.2) 09/08/22 11:30 Blood Type A Positive 09/08/22 12:02 Rho(D) Type Positive 09/08/22 12:02 Antibody Screen Negative 09/08/22 12:02 Discharge Plan Discharge Patient Disposition: Home Clinical Impression: Urinary tract infection in female, Abnormal CT scan, bladder Fall Qualifiers: Encounter type: initial encounter Qualified Code(s): W19.XXXA - Unspecified fall, initial encounter Condition: Stable Prescriptions: New ciprofloxacin HCl 500 mg tablet 250 mg PO Q12H Qty: 20 0RF hydrocodone-acetaminophen 5-325 mg tablet 1 tab PO Q8H PRN (Reason: pain) Qty: 14 0RF No Action Bystolic 5 mg tablet 5 mg PO QAM citalopram 10 mg tablet 10 mg PO BEDTIME hydrochlorothiazide 12.5 mg tablet 12.5 mg PO DAILY PRN (Reason: Edema) vitamin B complex Tablet 1 tab PO BEDTIME alendronate 70 mg tablet 70 mg PO Q7D Rx Instructions: on tuesday Tylenol Ex Str Rapid Release 500 mg Tablet 500 mg PO Q6H PRN (Reason: Pain) [employer] Gummies 1 tab PO DAILY digoxin 125 mcg (0.125 mg) tablet 125 mcg PO BEDTIME Eliquis 5 mg tablet 5 mg PO BID Discharge Orders: Discharge ED (Routine); Ordered 09/08/22 Ordered By: Sean Schumacher Referrals: Fidelia Junior MD [Primary Care Provider] - 1 week Patient Instructions: Urinary Tract Infection in Women (ED) Coding Level of Care Code ED Chief Minister for [facility]
[2022-09-08 12:01] LABS: Basophils # 0.1 10^3/uL (0.0-0.1); Basophils % 0.4 %; Eosinophils # 0.1 10^3/uL (0.0-0.8); Eosinophils % 0.5 %; Hematocrit 43.5 % (37.0-47.0); Hemoglobin 13.8 g/dL (11.5-15.3); Lymphocytes # 0.7 10^3/uL (0.8-4.8); Mean Corpuscular HGB Conc 31.7 g/dL (30.0-36.0); Mean Corpuscular Hemoglobin 31.2 pg (28.0-34.0); Mean Corpuscular Volume 98.4 fl (81-99); Mean Platelet Volume 10.2 fL (7.4-10.4); Monocytes # 0.3 10^3/uL (0.2-0.9); Monocytes % 2.3 %; Neutrophils # 10.34 10^3/uL (1.8-7.7); Neutrophils % 90.3 %; Nucleated Red Blood Cells % 0 %; Platelet Count 223 10^3/cmm (130-400); Red Blood Count 4.42 10^6/uL (4.1-5.3); Red Cell Distribution Width 13.9 % (12.1-15.1); White Blood Count 11.5 10^3/uL (4.0-10.0)
[2022-09-08 12:16] LABS: INR 1.56 (0.8-1.2)
[2022-09-08 12:31] LABS: Alanine Aminotransferase 11 U/L (0-33); Albumin Level 4.3 g/dL (3.5-5.2); Alkaline Phosphatase 82 U/L (35-105); Aspartate Amino Transferase 26 U/L (0-32); Blood Urea Nitrogen 23 mg/dL (8-23); Calcium 9.3 mg/dL (8.5-10.5); Carbon Dioxide 21 mmol/L (22-29); Chloride 98 mmol/L (98-107); Creatinine Clr Calc Pharmacy 51.4249; Globulin 2.7 g/dL (1.3-4.6); Glucose 142 mg/dL (65-115); Osmolality Calculated 290 mOsm/kg (285-295); Sodium 137 mmol/L (136-145); Total Bilirubin 2.1 mg/dL (0.15-1.2)
[2022-09-08 12:32] LABS: Digoxin 0.6 ng/mL (0.6-1.2)
[2022-09-08 12:37] LABS: Anion Gap 22.2 (5-19); Potassium 4.2 mmol/L (3.5-5.1)
[2022-09-08] MEDS: iohexol 350 mg/mL 500 mL Btl (per mL) IV (13:22)
[2022-09-08 14:27] LABS: Urine Appearance Cloudy (CLEAR); Urine Color Dark Yellow (Yellow); pH Urine 5 (5-7)
[2022-09-08 14:31] LABS: Add Urine Microscopic? YES; Bilirubin Urine 1+ (Negative); Blood Urine 3+ (Negative); Glucose Urine UA Norm (Normal); Ketones Urine Negative (Negative); Leukocyte Esterase Urine 2+ (Negative); Nitrate Urine Positive (Negative); Protein Urine 3+ (Negative); RBC Urine TOO NUMEROUS TO CNT /hpf (0-2); Urobilinogen Urine 4 mg/dL (Negative); WBC Urine TOO NUMEROUS TO CNT /hpf (0-5)
[2022-09-08 14:32] LABS: Add Urine Culture? Yes; Bacteria Urine 2+ /hpf; Squamous Epithelial Cell Urine RARE /hpf (0-5)
== END 2022-09-08 15:49 | disposition home or self-care (01) ==
PROVIDERS: Emergency Provider Emergency Medicine; PCP Family Medicine
DX: N39.0 Urinary tract infection, site not specified (principal); R93.41 Abnormal radiologic findings on diagnostic imaging of renal pelvis, ureter, or bladder; W19.XXXA Unspecified fall, initial encounter; Z79.01 Long term (current) use of anticoagulants; I25.10 Atherosclerotic heart disease of native coronary artery without angina pectoris
CPT/HCPCS: 36415; 70450; 70486; 74177; 80053; 80162; 81001; 85025; 85610; 86850; 86900; 87077; 87086; 87186; 99285; Q9967

== ENCOUNTER 2022-09-27 15:22 | Outpatient (CLI) | payer MEDICARE, OTHER, SELFPAY ==
--- NOTE | 2022-09-27 15:46 | US_ITS ---
WS: [id number] US pelvic complete* [id number] HISTORY: UNSPECIFIED OVARIAN CYST, UNSPECIFIED SIDE COMPARISON: None available. Prior hysterectomy. There is a complex cystic structure in the midline posterior to the urinary bladder. This corresponds to the cystic mass seen on the recent CT from 09/08/2022. Cystic mass contains low-level echoes and a few septations. Mass measures at least 7.0 x 8.8 x 7.2 cm. There is a few septations and low-level ec hoes. Suspect this is ovarian in etiology. There is an additional cystic mass in the high RIGHT pelvis above the bladder measuring 4.9 x 3.6 x 4 .6 cm. A few low-level echoes. No increased vascularity. US/US pelvic complete* [id number] IMPRESSION: 1. Cystic mass with septations centered in the pelvis measures 7.0 x 8.8 x 7.2 cm. Suspect ovarian in etiology. This corresponds to the mass seen deep in the pelvis on the CT of 09/08/2022. 2. Additional mass in the high RIGHT pelvis measures 4.9 x 3.6 x 4.6 cm. Cysti c in appearance with no increased vascularity or mural nodule. 3. O-RADS 4. Intermediate risk. Recommend follow-up with ANAESTHESIOLOGIST/oncology. Maligna ncy is not excluded.
--- NOTE | 2022-09-27 15:47 | CT_ITS ---
WS: [id number] CT ABDOMEN WITH AND WITHOUT CONTRAST HISTORY: Evaluate liver and adrenal gland. Multi phase imaging performed through the abdomen. Oral contrast has not been provided. Coronal and s agittal reformats are submitted. All CT scans at [facility] use at least one of these dose op timization techniques: automated exposure control; mA and/or kV adjustment per patient size (includes targeted exams where dose is matched to clinical indication); or iterative reconstruction. IV CONTRAST: Omnipaque 350; 100 mL IV. Oral contrast: No DLP: 1748.72 mGy.cm COMPARISON: 09/08/2022, 09/27/2012 Lower thorax: Dependent changes and emphysema at the lung bases. Moderate cardiac enlargement. No hia yamileth hernia. Liver/biliary system: Cirrhotic liver. Marked nodularity of the liver surface. There are scattered lo w-attenuation masses within the liver. The largest along the inferior RIGHT lobe of the liver measure s 7.8 x 3.9 cm consistent with a lobulated or 2 adjacent cysts. Smaller cysts were noted in 2012 in t his location. Postcontrast imaging there is no significant enhancement. Additional subcentimeter low- attenuation masses in the LEFT lobe of liver does not appear to enhance. These are more difficult to characterize completely due to their small size. There is mild heterogeneous appearance of the liver. No solid or enhancing masses. Portal vein patent. Gallbladder: Cholecystectomy. Pancreas: Not pancreatic duct or solid mass identified. There are multiple small cystic areas along t he pancreas less than a centimeter. Spleen: Normal size. Focal hyperintense area of enhancement on early arterial imaging becomes isodens e on the delayed imaging. Probably a benign hemangioma or related to early arterial enhancement. Adrenal glands: Precontrast Hounsfield units are below 10 within the RIGHT adrenal gland suggesting t his is benign. LEFT adrenal mass with mild thickening without a focal nodule. Right kidney: Normal size kidney. Simple cyst mid kidney measures 3.0 x 3.7 cm. Left kidney: Solid mass containing fat exophytic from the mid lateral LEFT kidney measures 1.8 x 1.6 cm. This mass has been present since at least 2010. There is an additional smaller cyst which is stab le also. No renal obstruction. Aorta: Mild atherosclerosis with no aneurysm. Lymphadenopathy: None. Free fluid: Small amount of ascites. Ascites predominantly adjacent to the liver. GI tract: Normal stomach and visualized small bowel. Abdominal wall: Unremarkable abdominal wall. No hernia. Visualized osseous structures: Grade 1 anterolisthesis of L4. No destructive bone lesions. CT/CT abdomen wo/w con [id number] IMPRESSION: 1. Bilateral adrenal masses. Low Hounsfield units RIGHT adrenal mass suggests benign adenoma. Stable since 2012. Only mild thickening of the LEFT adrenal gla nd. 2. 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 3. Cirrhotic liver with multiple cysts. These cysts have increased in size sin ce 2012. No definite HCC identified. 4. RIGHT renal cysts. 5. Small amount of ascites adjacent to the liver. 6. Prior cholecystectomy. 7. There are a few scattered very small cystic areas throughout the pancreas. Probably related to the pancreatic duct and associated with IPMN. These can be followed up every [address] protocol.
[2022-09-27] MEDS: iohexol 350 mg/mL 500 mL Btl (per mL) IV (17:16)
== END 2022-09-27 15:23 | disposition home or self-care (01) ==
LOC: RAD 15:27
PROVIDERS: PCP Family Medicine; Visit Provider Family Medicine
DX: N83.209 Unspecified ovarian cyst, unspecified side (principal); R19.09 Other intra-abdominal and pelvic swelling, mass and lump; E27.9 Disorder of adrenal gland, unspecified; N28.89 Other specified disorders of kidney and ureter; K74.60 Unspecified cirrhosis of liver; K76.89 Other specified diseases of liver; N28.1 Cyst of kidney, acquired; Z90.49 Acquired absence of other specified parts of digestive tract
CPT/HCPCS: 74170; 76856; Q9967

== ENCOUNTER 2022-11-10 10:24 | Outpatient (CLI) | payer MEDICARE, OTHER, SELFPAY ==
--- NOTE | 2022-11-10 11:22 | US_ITS ---
WS: [email or web address] US pelvic complete* [id number] HISTORY: OVARIAN CYST/ASYMPTOMATIC MENOPAUSAL STATE COMPARISON: 09/27/2022, CT 09/27/2022. Patient refused transvaginal imaging and also to fill urinary bladder. Prior hysterectomy. Complex cystic mass is reidentified in the midline of the pelvis. This mass measures 7.9 x 5.7 x 8.0 cm. Similar size and appearance to the prior study. There is a thin septation and through transmissio n. Not increased in size and no nodularity. There is an additional RIGHT adnexal cystic mass measuring 4.3 x 4.0 x 3.2 cm. No solid component. Neither ovary is identified as a discrete structure. US/US pelvic complete* [id number] IMPRESSION: 1. Midline central cystic mass measures 7.9 x 5.7 x 8.0 cm and is unchanged. 2. Additional small RIGHT adnexal cystic mass measures 4.3 x 4.0 x 3.2 cm. 3. No interval change since 09/27/2022. Continued close imaging and clinical fo llow-up recommended.
== END 2022-11-10 10:25 | disposition home or self-care (01) ==
LOC: RAD 10:28
PROVIDERS: PCP Family Medicine; Visit Provider Obstetrics & Gynecology Gynecologic Oncology
DX: N83.209 Unspecified ovarian cyst, unspecified side (principal); Z78.0 Asymptomatic menopausal state; R19.09 Other intra-abdominal and pelvic swelling, mass and lump; Z90.710 Acquired absence of both cervix and uterus
CPT/HCPCS: 76856

== ENCOUNTER → 2022-11-12 08:28 | Outpatient (BNVA) | payer MEDICARE, OTHER, SELFPAY | PROVIDERS: PCP Family Medicine; Visit Provider Internal Medicine Cardiovascular Disease | DX: I49.3 Ventricular premature depolarization (principal); I48.20 Chronic atrial fibrillation, unspecified; Z79.01 Long term (current) use of anticoagulants; I25.10 Atherosclerotic heart disease of native coronary artery without angina pectoris | CPT/HCPCS: 99213 ==

== ENCOUNTER → 2023-06-21 12:18 | Outpatient (BNVA) | payer MEDICARE, OTHER, SELFPAY | PROVIDERS: PCP Family Medicine; Visit Provider Internal Medicine | DX: I48.20 Chronic atrial fibrillation, unspecified (principal); I10 Essential (primary) hypertension; I49.3 Ventricular premature depolarization; E03.9 Hypothyroidism, unspecified; Z79.01 Long term (current) use of anticoagulants | CPT/HCPCS: 99214 ==

== ENCOUNTER 2023-07-28 08:07 | Outpatient (CLI) | payer MEDICARE, OTHER, SELFPAY ==
--- NOTE | 2023-07-28 08:20 | US_ITS ---
WS: [email or web address] ULTRASOUND ABDOMEN LIMITED CLINICAL INFORMATION: OTHER ASCITES/CIRRHOSIS OF LIVER COMPARISON: None. FINDINGS: Liver Size: Enlarged Craniocaudal length: 17.7 cm. Echogenicity: Coarse Surface nodularity: Cirrhotic Mass (size and location): Simple hepatic cysts measuring 4.1 x 4.2 x 3.7 cm and 4.3 x 4.8 x 4.4 cm on the undersurface of the liver. Bile ducts Intrahepatic ducts: Normal. Common bile duct diameter: 0.5 cm. Gallbladder cholecystectomy Pancreas Normal as visualized. Right kidney: Simple RIGHT renal cyst measuring 4.3 x 3.5 x 3.1 cm Hydronephrosis: None. Size: 10.8 cm x 4.4 cm x 4.6 cm. Abdominal aorta and IVC Visualized portions are normal. Ascites: None. IMPRESSION: 1. Enlarged cirrhotic liver. Small amount of perihepatic ascites. 2. Prior cholecystectomy. Normal common bile duct. 3. No hydronephrosis in the RIGHT kidney. 4. Incidental hepatic and renal cysts.
== END 2023-07-28 08:08 | disposition home or self-care (01) ==
LOC: RAD 08:07
PROVIDERS: PCP Family Medicine; Visit Provider Internal Medicine Gastroenterology
DX: K74.60 Unspecified cirrhosis of liver (principal); R18.8 Other ascites
CPT/HCPCS: 76705

== ENCOUNTER 2023-08-02 09:25 | Outpatient (CLI) | payer MEDICARE, OTHER, SELFPAY ==
--- NOTE | 2023-08-02 09:48 | US_ITS ---
WS: [email or web address] US pelvic complete* [id number] HISTORY: OVARIAN CYST COMPARISON: 11/10/2022 and 09/27/2022 Patient refused endovaginal imaging and the urinary bladder was not distended. Quality of this examin ation is significantly limited. Prior hysterectomy. There is a cystic mass in the RIGHT adnexa with septations. Thin septations with no increased vascula rity. No nodularity identified. This cyst measures 5.4 x 9.5 x 5.9 cm and is probably related to the ovary. No adjacent normal ovarian tissue is identified. There is also a small amount of ascites in th e abdomen which was not been present on the prior ultrasound study. Ascites is noted extending into t he RIGHT upper quadrant adjacent to a cirrhotic appearing liver. Bowel and ascites in the LEFT adnexa. The LEFT ovary is not identified. IMPRESSION: 1. Reidentified is a cystic mass with septations in the RIGHT adnexa measuring 5.4 x 9.5 x 5.9 cm wh ich was also described on 11/10/2022 and 09/27/2002 and does not appear significantly changed. A separat e RIGHT ovary is not identified. This may be an ovarian cyst or pelvic inclusion cyst as the patient has had prior surgery. 2. O RADS 4; intermediate risk. 3. Ascites which has increased since the prior ultrasound on 07/28/2023. Ascites extends into the RIG HT upper quadrant and the visualized liver is cirrhotic.
== END 2023-08-02 09:26 | disposition home or self-care (01) ==
LOC: RAD 09:26
PROVIDERS: PCP Family Medicine; Visit Provider Obstetrics & Gynecology Gynecologic Oncology
DX: N83.209 Unspecified ovarian cyst, unspecified side (principal)
CPT/HCPCS: 76856

== ENCOUNTER → 2023-12-20 12:49 | Outpatient (BNVA) | payer MEDICARE, OTHER, SELFPAY | PROVIDERS: PCP Family Medicine; Visit Provider Internal Medicine | DX: I48.20 Chronic atrial fibrillation, unspecified (principal); I10 Essential (primary) hypertension; I49.3 Ventricular premature depolarization; E03.9 Hypothyroidism, unspecified; Z79.01 Long term (current) use of anticoagulants | CPT/HCPCS: 99214 ==

== ENCOUNTER 2024-07-12 09:41 | Outpatient (RCR) | payer MEDICARE, OTHER, SELFPAY | END 2024-07-23 08:42 | disposition home or self-care (01) | LOC: SPT 09:41 | PROVIDERS: Visit Provider Family Medicine | DX: I89.0 Lymphedema, not elsewhere classified (principal) | CPT/HCPCS: 97161; 97530 ==

== ENCOUNTER → 2024-08-07 14:03 | Outpatient (BNVA) | payer MEDICARE, OTHER, SELFPAY | PROVIDERS: PCP Family Medicine; Visit Provider Internal Medicine | DX: I48.20 Chronic atrial fibrillation, unspecified (principal); I10 Essential (primary) hypertension; I49.3 Ventricular premature depolarization; E03.9 Hypothyroidism, unspecified | CPT/HCPCS: 99214 ==

== ENCOUNTER 2024-08-10 08:23 | Outpatient (CLI) | payer MEDICARE, OTHER, SELFPAY ==
--- NOTE | 2024-08-10 08:25 | US_ITS ---
WS: [email or web address] RIGHT UPPER QUADRANT ULTRASOUND HISTORY: CIRRHOSIS COMPARISON: 07/28/2023 Liver: 17.4 cm in length. Liver is top normal size. Cirrhotic liver with undulating margins. Reidentified are hepatic cysts in the most inferior RIGHT lobe of the liver. Cysts were described on a CT of 09/27/2022 and a prior ultrasound. Largest cyst measures 4.6 x 5.5 x 4.8 cm. No solid mass. Portal Vein: Portal vein flow is low normal. There is both hepatopetal and hepatofugal flow suggesting early changes of portal hypertension. Gallbladder: Prior cholecystectomy. CBD: 0.2 cm Pancreas: Normal size and echogenicity. Right kidney: 8.4 cm in length. Normal size and echogenicity. No hydronephrosis or mass. 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 No ascites. US/US abdomen limited [id number] IMPRESSION: 1. Cirrhotic liver with hepatic cysts, stable since 07/28/2023. 2. Variable portal venous flow, above and below the baseline suggesting early changes of portal venous hypertension. 3. Dilated IVC. 4. Prior cholecystectomy.
== END 2024-08-10 08:24 | disposition home or self-care (01) ==
PROVIDERS: PCP Family Medicine; Visit Provider Internal Medicine Gastroenterology
DX: K74.60 Unspecified cirrhosis of liver (principal); K76.89 Other specified diseases of liver; R93.89 Abnormal findings on diagnostic imaging of other specified body structures; I86.8 Varicose veins of other specified sites; Z90.49 Acquired absence of other specified parts of digestive tract
CPT/HCPCS: 76705

== ENCOUNTER 2024-08-23 14:26 | Outpatient (CLI) | payer MEDICARE, OTHER, SELFPAY ==
--- NOTE | 2024-08-23 14:32 | US_ITS ---
WS: [email or web address] US pelvic complete* [id number] HISTORY: OVARIAN CYST COMPARISON: 08/02/2023 Status post hysterectomy. No free fluid in the pelvis. Neither ovary is identified. Previously described cystic and fluid collections are not well identified. Patient has declined transvaginal imaging. There is a complex cystic mass in the midline with a septation. The entire collection measures 9.3 x 9.2 x 5.8 cm. This is probably a fluid collection of cyst noted to the LEFT on prior imaging. US/US pelvic complete* [id number] IMPRESSION: * 1. 1. Patient has declined transvaginal ultrasound imaging. 2. Prior hysterectomy. 3. Cystic mass with septation in the midline of the pelvis measures 9.3 x 9.2 x 5.8 cm. Evaluation is limited without transvaginal imaging and the patient's bladder was not very well distended. This collection is similar to 09/27/2022. L ow-grade neoplasm cannot be excluded. Limited evaluation.
== END 2024-08-23 14:27 | disposition home or self-care (01) ==
PROVIDERS: PCP Family Medicine; Visit Provider Nurse Practitioner Family
DX: N83.209 Unspecified ovarian cyst, unspecified side (principal); Z90.710 Acquired absence of both cervix and uterus; R19.09 Other intra-abdominal and pelvic swelling, mass and lump
CPT/HCPCS: 76856

== ENCOUNTER 2024-12-14 13:53 | Outpatient (CLI) | payer MEDICARE, OTHER, SELFPAY ==
--- NOTE | 2024-12-14 14:03 | US_ITS ---
WS: [email or web address] US pelvic complete* [id number] HISTORY: OVARIAN CYST COMPARISON: 09/27/2022, 08/23/2014, CT 09/08/2022 Limited evaluation of the pelvic structures. Only transabdominal imaging is submitted. There is a multiloculated cystic mass in the pelvis. This extends across the midline. Cyst extends slightly greater to the RIGHT of midline. The entire collection is not well identified due to overlying bowel gas. The entire collection measures 9.4 x 9.4 x 10.8 cm. Septations are present. Some of the septations are slightly thickened and nodular Mild increased color Doppler and one of the septations. There is now adjacent ascites. Neither ovary identified. Prior hysterectomy. US/US pelvic complete* [id number] IMPRESSION: Reidentified is a multiloculated cystic collection with septations and mild inc reased vascularity within the septations in the central pelvis. Cystic collecti on measures 9.4 x 9.4 x 10.8 cm. Limited evaluation as only transabdominal imag ing is submitted. This collection has been present for several years. There is now ascites present. Low-grade neoplasm is not excluded.
== END 2024-12-14 13:54 | disposition home or self-care (01) ==
LOC: RAD 13:55
PROVIDERS: PCP Family Medicine; Visit Provider Nurse Practitioner Family
DX: N94.89 Other specified conditions associated with female genital organs and menstrual cycle (principal)
CPT/HCPCS: 76856

== ENCOUNTER 2025-01-23 08:36 | Outpatient (CLI) | payer MEDICARE, OTHER, SELFPAY ==
--- NOTE | 2025-01-23 08:51 | US_ITS ---
WS: [email or web address] RIGHT UPPER QUADRANT ULTRASOUND HISTORY: Cirrhosis. COMPARISON: 08/10/2024, CT 09/27/2022 Liver: 16.6 cm in length. Normal size liver. Coarse echotexture throughout the liver with lobulated surface. No solid mass. Reidentified are cysts in the LEFT lobe of the liver. Most anterior cyst measures 4.7 x 4.1 x 4.3 cm. Adjacent cyst with through transmission measuring 3.8 x 4.9 x 5.5 cm. There is good through transmission. No solid component. Small amount of perihepatic ascites. Portal Vein: Increased pulsatility of the main portal vein with prominent peak to cross velocities. Normal velocity. No reversal of flow. Gallbladder: Prior cholecystectomy. CBD: 0.5 cm Pancreas: Poorly visualized. Right kidney: 10.0 cm in length. Kidney is normal size but there is marked diffuse cortical thinning. No hydronephrosis. Aorta and IVC: Unremarkable abdominal aorta and IVC. Small amount of ascites in the RIGHT upper quadrant. US/US abdomen limited [id number] IMPRESSION: 1. Cirrhotic liver with perihepatic ascites. Compared to the most recent exam the amount of ascites has increased from 08/10/2024. 2. Loss of the normal undulating waveform of the portal vein. Increased pulsat ility in the portal vein consistent with cirrhosis. No reversal of flow. 3. Diffuse cortical thinning RIGHT kidney with no hydronephrosis. 4. Prior cholecystectomy. 5. Hepatic cysts.
== END 2025-01-23 08:37 | disposition home or self-care (01) ==
LOC: RAD 08:38
PROVIDERS: PCP Family Medicine; Visit Provider Internal Medicine Gastroenterology
DX: K74.60 Unspecified cirrhosis of liver (principal); R18.8 Other ascites; K76.89 Other specified diseases of liver; Z90.49 Acquired absence of other specified parts of digestive tract
CPT/HCPCS: 76705

== ENCOUNTER → 2025-02-06 15:02 | Outpatient (BNVA) | payer MEDICARE, OTHER, SELFPAY | PROVIDERS: PCP Family Medicine; Visit Provider Internal Medicine | DX: I10 Essential (primary) hypertension (principal); I48.20 Chronic atrial fibrillation, unspecified; I25.10 Atherosclerotic heart disease of native coronary artery without angina pectoris | CPT/HCPCS: 36415; 80048; 83880 ==